=== PATIENT | male | born 1960 | race Caucasian/White ===

== ENCOUNTER 2023-04-29 09:50 | Outpatient (AMB) | payer MEDICARE, SELFPAY ==
--- NOTE | 2023-04-29 10:56 | A.OFFVIS_ITS ---
Intake Intake Visit Reasons: Low back pain Assessment & Plan Assessment & Plan (1) Cervical myelopathy: Code(s): G95.9 - Disease of spinal cord, unspecified (2) Cervical radiculopathy: Code(s): M54.12 - Radiculopathy, cervical region (3) Lumbar stenosis: Code(s): M48.061 - Spinal stenosis, lumbar region without neurogenic claudication Plan Dear Joselito, Thank you for referring Mr Benjamin to our office today. He is a very nice 63-year-old diabetic gentleman who underwent C3-C6 anterior cervical fusion with Dr. Rodriguez in 2011 for cervical myelopathy. He did very well after that procedure and recovered for the most part without any significant deficits. He noticed about a month or so ago acute onset of pain in his left arm that started without any provocative event. It starts at the top of his neck will radiate down into the front of his chest, across the shoulder down into his arm, forearm into his hands. He has tingling and numbness along the medial aspect of his left arm into his 4th and 5th digits. He is having a lot of difficulty with strength in his left arm. Specifically, he can not hold things, he can not open his fingers and extend them or grasp anything without dropping it. He underwent a cervical MRI showing adjacent segment disc disease with central canal stenosis and foraminal stenosis, and was referred for an evaluation. The weakness has been progressive and is getting worse over time. The pain is also quite severe and very bad at nighttime. He smokes marijuana and takes oxycodone help with the pain. He has also been taking Flexeril, Tylenol and ibuprofen. PMH: He has an extensive medical history including coronary disease with a cardiac arrest in 2019, he underwent what sounds like bypass surgery and possibly surgery to repair valves. He tells me that he is been in good shape since then without any further issues. Is a history of diabetes, his A1c is around 7. The [facility] record, state that he has diabetic retinopathy and ophthalmic manifestations as well. He has a history of high cholesterol, hypertension, erectile dysfunction. He denies any issues with his kidneys, bleeding disorders, lung disorders or abdominal problems. Social hx: He smokes marijuana daily but does not smoke cigarettes or use alcohol Medications: Lisinopril, atorvastatin, metoprolol, baby aspirin, metformin, Flexeril, oxycodone, gabapentin, Tylenol, ibuprofen Allergies: Denies any drug allergies Physical exam: He is awake alert oriented no acute distress, he has diffuse weakness of his left arm which I would rate as 4- out of 5 proximally and the deltoid and biceps, with the triceps, hand grasp, lumbricals and finger extensors all being about 2/5.. The patient has a mild left anterior tibialis weakness as well rated at 4-5. I do not see any atrophy of the arm at this point. There is sensory loss in the C8 distribution. He has an absent reflex at the left triceps, but the rest of his body is hyperreflexic. Valles's sign on the right, no Valles's on the left, positive pectoralis reflex on the left, lower extremity reflexes are hyperreflexic bilaterally. Imaging review: Cervical MRI done at [facility] shows evidence of fusion from C3- C6. There is residual right-sided myelomalacia at C4-5 with a small osteophyte still projecting posteriorly at this level. I was able to compare to the imaging done at [facility] in 2012 and there has been a significant reduction in the stenosis at this level. At C6-7 he has moderate to severe central canal stenosis with what appears to be a faint cord signal change at this level. There is neuroforaminal stenosis bilaterally. He also has foraminal stenosis at C7-T1 which I would rate as moderate. Incidentally he also has a lumbar MRI done at [facility] showing severe central canal stenosis at L4-5 with a slight spondylolisthesis and a synovial cyst. Impression: 63-year-old male history of previous C3-C6 anterior cervical [place] [address] Rodriguez for cervical myelopathy presents for evaluation of an acute onset of left arm pain which travels from his neck to his chest down across his arm into his forearm and hand with tingling and numbness in the 4th and 5th digits with significant diffuse loss of strength in the whole arm, worse distally. He certainly has stenosis at C6-7 below the fusion and I think there is some subtle cord signal change although it is not mentioned on the report. There is foraminal stenosis at this level as well which is severe. In addition, there is moderate foraminal stenosis at C7-T1 as well. Not nearly as bad as what is seen at C6-7. Typically this would be something Dr. Pardo would treat with anterior cervical fusion. Because of the mixing of dermatomes across C7 and C8 and the weakness of the finger intrinsics and the triceps, I suspect he would choose to do both of these levels that are affected below the fusion. I am a little perplexed why he has weakness proximally. We should keep in the back of our mind that a diabetic polyneuropathy can present like this as well and that would explain proximal weakness. In the end, I think Dr. Pardo is going to elect for the two-level anterior cervical fusion. The patient will obviously need cardiac clearance before surgery and he is going to work on calling his doctor's offices to see if we can expedite this. I will call the patient and update him with a plan once I have a chance to sit down with Dr. Pardo. We did briefly discuss the fact that he has lumbar stenosis but we can deal with this once his cervical spine issues are addressed. Thank you for allowing us to care for your patient. The total time spent with this visit with this patient was 65 minutes reviewing history, physical exam, cervical and lumbar imaging review, and implementation of treatment plan or further diagnostic testing Antonio Pardo MD,PhD [facility] [place] [facility] Coding Level of Care Code New Pt Level 5 (08309) Diagnoses Cervical myelopathy G95.9 Cervical radiculopathy M54.12 Lumbar stenosis M48.061
== END 2023-04-29 13:12 | disposition home or self-care (01) ==
PROVIDERS: PCP Internal Medicine; Referring Provider Physician Assistant; Visit Provider Physician Assistant
DX: G95.9 Disease of spinal cord, unspecified (principal); M54.12 Radiculopathy, cervical region; M48.061 Spinal stenosis, lumbar region without neurogenic claudication
CPT/HCPCS: 99205

== ENCOUNTER → 2023-04-29 09:50 | Outpatient (BNVA) | payer MEDICARE, SELFPAY | PROVIDERS: PCP Internal Medicine; Visit Provider Physician Assistant | DX: G95.9 Disease of spinal cord, unspecified (principal); M54.12 Radiculopathy, cervical region; M48.061 Spinal stenosis, lumbar region without neurogenic claudication | CPT/HCPCS: 99202 ==

== ENCOUNTER 2023-05-12 08:36 | Outpatient (REF) | payer MEDICARE, SELFPAY ==
--- NOTE | 2023-05-12 08:40 | EMG_ITS ---
Left median and ulnar motor and sensory studies were performed. Left radial sensory study was performed. Left median and lateral antecubital brachial sensory studies were performed and paraspinal muscles were tested with a needle. IMPRESSION: 1. [id number] left median neuropathy across carpal tunnel. 2. Mild left ulnar neuropathy across cubital tunnel. MD ANDREA Walter/ISABEL / [id number]
== END 2023-05-12 08:37 | disposition home or self-care (01) ==
LOC: HO.NEURO 08:36
PROVIDERS: PCP Physician Assistant Medical; Visit Provider Physician Assistant
DX: M54.12 Radiculopathy, cervical region (principal); G95.9 Disease of spinal cord, unspecified
CPT/HCPCS: 95886; 95910

== ENCOUNTER 2023-05-17 14:10 | Outpatient (AMB) | payer MEDICARE, SELFPAY ==
--- NOTE | 2023-05-17 14:14 | HO.SPINEOV ---
Intake Intake Visit Reasons: EMG results Intake Note: is here today to f/u EMG results. Beam Builder Required: No Assessment & Plan Assessment & Plan (1) Lumbar stenosis: Code(s): M48.061 - Spinal stenosis, lumbar region without neurogenic claudication Plan Mr Benjamin is back in the office today to review his EMG. The EMG was inconclusive. In the interim since I saw him a few weeks ago he tells me that the pain that he was having in his chest that was going down his arm is gone. He also feels a significant improvement in the numbness in his left hand. He does have some baseline weakness still with finger extension on his 4th and 5th digits but it is not getting worse. He feels more less that he is back almost to the level he was after his 1st neck surgery. I am going to review the situation with Dr. Pardo but I believe he is going to say we can cancel the anterior cervical fusion in light of his resolution of symptoms with the suspicion that this may have been a diabetic polyneuropathy as opposed to his spinal cord compression at C6-7. A 2nd issue he wanted to address was his lumbar spine. He has been having issues with back pain and bilateral leg pain for years. It was the original reason he wanted to come see us but obviously his cervical spine over road that at the time. Now that that is resolved he wanted me to look at his lumbar MRI and see if there was anything we can address with surgery. His symptoms as mentioned are back pain as well as bilateral leg pain with standing and walking. He has fatigue in his legs as well. The situation improves when he sits down but does not completely go away. If he coughs or sneezes he will get a jarring sensation in his back which will go down into his legs. He has been through cortisone injections through the years. No physical therapy. He will take [id number] medicine if needed if the symptoms are bad but in general it does not help any way. His MRI of the lumbar spine done at [facility] in December of 2022 shows what looks like a slight spondylolisthesis at L4-5 with hyperintensity of the right L4-5 facet joint with severe central canal stenosis. I am going to send him for flexion-extension x-rays and a vertical position to rule out instability. Based on the results of that we can consider either decompression alone versus fusion surgery if there is any signs of mobility. Once I have a chance to review everything with Dr. Pardo I will get back to the patient with a final plan. Total amount of time spent in this visit was 20 minutes in discussion of symptoms, lumbar, and EMG imaging results and subsequent plan of care Antonio Pardo MD,PhD [facility] Orders: Orders XR lumbar spine 4V min Today M48.061 - Spinal stenosis, lumbar region without neurogenic claudication Coding Level of Care Code Est Pt Level 3 (23791) Diagnoses Lumbar stenosis M48.061
== END 2023-05-17 15:18 | disposition home or self-care (01) ==
PROVIDERS: PCP Physician Assistant Medical; Visit Provider Physician Assistant
DX: M48.061 Spinal stenosis, lumbar region without neurogenic claudication (principal)
CPT/HCPCS: 99213

== ENCOUNTER 2023-05-17 14:10 | Outpatient (REF) | payer MEDICARE, SELFPAY ==
--- NOTE | ~2023-05-17 | XR_ITS ---
EXAMINATION: XR LUMBOSACRAL SPINE WITH OBLIQUES CLINICAL INFORMATION: Lumbar spinal stenosis, without neurogenic claudication. COMPARISON: None available. TECHNIQUE: AP and lateral (neutral, flexion and extension) views are submitted.. FINDINGS: There is mild bony demineralization. Vertebral body heights are normal. At L4-L5, there is a 5 mm anterolisthesis and mild disc space narrowing. The remaining disc spaces are well-maintained. No acute fracture or spondylolisthesis is seen. There is no instability with flexion or extension. There is moderately severe endplate arthropathy at T11-T12 and T12-L1, and very mild multi-level lumbar endplate arthropathy is seen. The posterior elements are intact. There is facet arthropathy, most pronounced at L4-L5 and L5-S1. The paravertebral soft tissues are unremarkable. There are aortoiliac atherosclerotic calcifications. XR/XR lumbar spine 4V min IMPRESSION: 1. There is moderate degenerative disc disease at L4-L5. 2. There is no instability with flexion or extension. 3. There is multi-level thoracolumbar spondylosis. 4. There is facet arthropathy, most pronounced at L4-L5 and L5-S1.
== END 2023-05-17 14:11 | disposition home or self-care (01) ==
LOC: HO.HOSX 14:10
PROVIDERS: PCP Physician Assistant Medical; Visit Provider Physician Assistant
DX: M48.061 Spinal stenosis, lumbar region without neurogenic claudication (principal)
CPT/HCPCS: 72110; 99212

== ENCOUNTER → 2023-07-07 13:20 | Outpatient (BNV) | payer MEDICARE, SELFPAY | PROVIDERS: PCP Physician Assistant Medical; Visit Provider Internal Medicine Cardiovascular Disease | DX: Z01.810 Encounter for preprocedural cardiovascular examination (principal); M48.061 Spinal stenosis, lumbar region without neurogenic claudication | CPT/HCPCS: 93010 ==

== ENCOUNTER → 2023-07-20 12:24 | Outpatient (REF) | payer MEDICARE, SELFPAY ==
--- NOTE | 2023-07-20 12:27 | CA_ITS ---
Transthoracic Echocardiogram Patient (Last, First, Middle): Antonio Benjamin J Gender: Male Date of : 1960 Age: 63 Procedure Date: 07/20/2023 Procedure Type: Transthoracic Echocardiogram Location: OP Height: 180.34 cm Weight: 120.2 kg BSA: 2.38 m2 Heart Rate: bpm BP: 114 / 77 mmHg Tube Test Technician: JIMBO Referring MD: Olu PATINO Motorized Squad Commanding Officer: Mohan Isaacs MD Symptoms: I25.10 - Atherosclerotic heart disease of [place] coronary artery without... Study Quality: Adequate with contrast ECG Rhythm: Sinus Conclusions: - 1. Normal LV ejection fraction of 65-70% with mild LVH with pseudonormal filling pattern 2. Cardiac valvular Doppler is within normal limits 3. No gross pericardial effusion Findings Procedure Information Contrast agent, definity, is being given per protocol without apparent complications. Left Ventricle Normal left ventricular size and systolic function. There is mildly increased left ventricular wall thickness. The visually estimated ejection fraction is between 65-70%. There is evidence of regional wall motion abnormalities. Spectral Doppler is indicative of a pseudonormal filling pattern. E/E prime ratio is between 8 and 15 consistent with indeterminate filling pressures. Wall Motion Rest Echo Findings The basal inferolateral segment is hypokinetic. The basal inferior and basal inferoseptal segments are akinetic. All other scored wall segments showed normal motion. Atria The left atrium is likely dilated. The right atrium is normal in size. Aortic Valve There is no aortic valve stenosis. There is no aortic valve regurgitation. Mitral Valve There is mild anterior and posterior mitral leaflet thickening. The posterior mitral leaflet has restricted mobility. There is trace mitral valve regurgitation. There is no mitral valve stenosis. Pulmonic Valve The pulmonic valve was not well visualized. Tricuspid Valve The tricuspid valve was not well visualized. Tricuspid regurgitation envelope is inadequate for calculation of right ventricular systolic pressure. Normal right atrial pressure. Great Vessels The aorta was not well visualized. The pulmonary artery was not well visualized. Venous The inferior vena cava is normal in size and collapses greater than 50% with inspiration. Pericardium/Pleural There is no evidence of pericardial effusion. Prior Study Comparison No prior study available for comparison. Measurements 2D Linear Measurements IVSd: 1.25 0.6-0.9/0.6-1.0 cm LVIDd: 4.12 3.9-5.3/4.2-5.9 cm LVIDd Index: 1.73 2.4-3.2/2.2-3.1 cm/m2 LVIDs: 2.59 2.0-3.6 cm LVPWd: 1.06 0.7-1.1 cm LA Diam: 4.10 2.7-3.8/3.0-4.0 cm LAIDs Index: 1.72 1.5-2.3 cm/m2 LV Mass: 203.75 67-162/88-224 g LV Mass Index: 85.61 43-95/49-115 g/m2 LVOT Diam: 2.10 3.0+(-)1.3 cm 2D Systolic Function EF 4C: 69.50 >55% EF 2C: 66.30 >55% EF BiP: 68.20 >55% Mitral Valve MV Pk E: 1.09 MV PK A: 0.80 MV Decel Time: 235.00 E/A: 1.40 E'Lateral: 11.30 E'Medial: 8.38 E/E' Med: 13.00 E/E' Lat: 9.60 PHT: 69.00 MVA PHT: 3.19 Decel [place]: 4.63 Aortic Valve AoV Pk Den: 1.36 AoV Mn Den: 0.98 AoV VTI: 0.29 AoV Pk Grad: 7.00 Aov Mn Grad: 4.00 MOSES Cont.VTI: 2.31 LVOT LVOT Pk Den: 0.95 LVOT Mn Den: 0.65 LVOT VTI: 0.19 LVOT Pk Grad: 4.00 LVOT Mn Grad: 2.00 LVOT Diam: 2.10 LVOT Area: 3.46 Diastolic Function MV Pk E: 1.09 MV Pk A: 0.80 E/A: 1.40 E'Medial: 8.38 E/E' Med: 13.00 E' Laterial: 11.30 E/E' Lat: 9.60 Right Ventricle TAPSE (mm): 17.00 TVS' Den: 11.20 Tricuspid Valve RA Press: 3.00 Great Vessels Aorta Sinus of Valsalva: 3.45 2.0-3.[address] [place]: 2.76 1.7-3.4 cm Ao Asc: 3.30 2.1-3.4 cm Updated in Other Vendor System with Status of Final Mohan Isaacs MD electronically signed on 07/20/2023 2:35:12 PM with status of Final
== END ==
LOC: HO.CARD 12:24
PROVIDERS: PCP Physician Assistant Medical; Visit Provider Physician Assistant
DX: I25.10 Atherosclerotic heart disease of native coronary artery without angina pectoris (principal)
CPT/HCPCS: 93306; 99212; J2250; J3010; Q9957

== ENCOUNTER 2023-07-20 13:56 | Outpatient (AMB) | payer MEDICARE, SELFPAY ==
[2023-07-20 14:46] VITALS: BP 122/74; PULSE 78; BMI 36.6
--- NOTE | 2023-07-20 14:46 | MHC.OFFVIS ---
Vital Signs 07/20/23 14:46 Height 5 ft 11 in Weight 262 lb 5.601 oz BMI 36.6 BP 122/74 Blood Pressure Location Lt brachial Position Sitting Pulse 78 Intake Visit Reasons: Preop/ [place]/ CAD, htn, echo at 1 today Intake Note: Pre-op clearance dx CAD feeling good Tissue Technologist Required: No Materials Manager: Materials Manager Present Accompanied by: Spouse Allergies No Known Allergies Allergy (Verified 07/06/23 10:11) Medication List - Last Reconciled 07/20/23 by Mohan Isaacs MD aspirin 81 mg PO DAILY atorvastatin 80 mg PO BEDTIME cyclobenzaprine 10 mg PO TID PRN dulaglutide (Trulicity) 3 mg subcut QWEEK gabapentin 600 mg PO TID insulin NPH and regular human 100 unit/mL (70-30) (Humulin 70/30 U-100 KwikPen) per patient lisinopril 2.5 mg PO DAILY metformin 850 mg PO BID metoprolol tartrate 25 mg PO BID multivitamin 1 tab PO DAILY oxycodone 15 mg PO Q4H PRN sildenafil 100 mg PO DAILY PRN HPI Comments Details: Thank you for referring Antonio in cardiology consultation today for an urgent preoperative cardiovascular risk stratification referred by anesthesia team. Patient is 63-year-old male with premature atherosclerosis with 1st manifestation of coronary artery disease for symptoms of unstable angina in 1997 leading to LAD stent. Subsequently in 2019 while he was in [place] he had a cardiac arrest witnessed and he subsequently underwent 6 vessel coronary artery bypass grafting. At that time he did not recall having any anginal symptoms. Over the last few years he has been having significant issues with lumbar pain. He had cervical spine issues which has not resolved but he is planned to undergo lumbar spine surgery, decompression under general anesthesia. This is considered intermediate risk surgery. Patient however says that he has excellent functional capacity. He goes to the gym every day. He can walk 3.5-4 miles an hours speed in an hour with an incline. He said he also carries 40 lb of wood pellets up and downstairs without any restriction from cardiac perspective. Denies any exertional chest pain or shortness of breath. He said he does other exercise in the gym without any issues. He takes all his medications. He is scheduled to undergo surgery tomorrow. He underwent an echocardiogram today which showed normal LV ejection fraction with mild LVH with regional wall motion abnormality consistent with underlying coronary artery disease pseudonormal filling pattern. He has no heart failure symptoms. Denies any worsening shortness of breath, orthopnea, PND. He is taking all his medications. EKG done recently showed normal sinus rhythm with normal EKG. [facility] Medical History Back pain Numbness Obesity Mixed hyperlipidemia Medical marijuana use Former cigarette smoker Diabetic retinopathy of both eyes DKA (diabetic ketoacidosis) Cyst of joint of right hand Erectile dysfunction HTN (hypertension) HLD (hyperlipidemia) CAD (coronary artery disease) Myocardial infarction Diabetes Surgical History Hx of heart artery stent H/O colonoscopy Hx of cardiac cath Hx of CABG Hx of neck surgery Hx of carpal tunnel repair Social History Are you a primary managed care director to a significant other at home: No Do you presently have visiting nurse or other home services: No Patient Tobacco Use Status: Former Tobacco user Review of Systems Const Denies chills, Denies daytime sleepiness, Denies fatigue, Denies fever(s), Denies frequent falls, Denies poor appetite, Denies snoring, Denies stops breathing during sleep, Denies weakness, Denies weight gain and Denies weight loss Eyes Denies loss of vision ENT Denies dizziness and Denies hearing loss Card Denies chest pain, Denies claudication, Denies leg edema, Denies lightheadedness, Denies palpitations, Denies dyspnea, Denies dyspnea on exertion and Denies orthopnea Resp Denies cough, Denies excessive phlegm production, Denies dyspnea, Denies dyspnea on exertion, Denies snoring and Denies wheezing GI Denies abdominal pain, Denies hematochezia, Denies change in bowel habits, Denies nausea and Denies vomiting Denies dysuria and Denies urinary frequency Musc Denies arthralgias, Denies muscle weakness, Denies numbness and Denies other (frequent falls) Skin/Breast Denies nail changes and Denies rash Neuro Denies Abnormal speech present, Denies dizziness, Denies frequent falls, Denies loss of vision, Denies memory loss, Denies numbness and Denies weakness Psych Denies depression and Denies memory loss Endo Denies fatigue and Denies palpitations Santo/Lymph Reports easy bruising and Reports other (anemia) Aller/Immun Denies wheezing Physical Exam Vital Signs: Last Vital Signs Pulse 78 07/20/23 14:46 BP 122/74 07/20/23 14:46 BMI result Body Mass Index 36.6 Const General: cooperative, comfortable, no acute distress, alert, awake and Physically active Nutritional Appearance: obese and overweight Limitations: no limitations HEENT Head: Yes normocephalic and Yes atraumatic Neck Neck: Yes trachea midline, Yes supple and Yes no JVD Chest Chest palpation & inspection: normal inspection of the chest and other (Well-healed sternotomy scar) Resp Effort & Inspection: normal respiratory effort Auscultation: clear to auscultation bilaterally Cardio Jugular venous distension: no JVD Palpation: normal PMI Rate: regular rate Rhythm: regular rhythm Heart sounds: S1 normal heart sound present, S2 normal heart sound present, no click, no gallops, no murmurs and no rubs GI Auscultation: normal bowel sounds Skin General skin exam: no rashes or lesions noted Neuro General: no focal motor deficits Speech: No Abnormal speech present Extrem General: Yes no clubbing, cyanosis or edema Psych Appearance: grossly normal Assessment & Plan Assessment & Plan (1) Pre-operative cardiovascular examination: Code(s): Z01.810 - Encounter for preprocedural cardiovascular examination Category: Medical Plan: Preoperative cardiovascular risk stratification this middle-aged man to undergo intermediate risk surgery spine surgery under general anesthesia with excellent functional capacity of more than 4 Mets with no symptoms of angina with no signs or symptoms of heart failure with normal LV ejection fraction by echocardiogram today and normal baseline EKG. He has no signs or symptoms of heart failure. At this point time appears to be optimized to undergo surgery with low to intermediate risk for perioperative cardiovascular morbidity mortality. His aspirin has been continued by the surgical team. Continue all other medications in the perioperative. Except for insulin and metformin as guided by anesthesia team. Please consult us in the perioperative time if need be. (2) Coronary artery disease: Code(s): I25.10 - Atherosclerotic heart disease of [place] coronary artery without angina pectoris Category: Medical Plan: CAD with premature atherosclerosis with successful coronary artery bypass grafting 5 years ago. I would suggest him to undergo surveillance myocardial perfusion imaging post spine surgery. This is to evaluate for graft patency. This is not urgent. Continue aggressive medical therapy. Currently on low-dose aspirin therapy and should be continue for life for vascular protection. Currently on high-intensity statin therapy with target goal LDL less than 70 mg/dL. Blood pressure is currently well optimized on current therapy. Continue the same. Continue aggressive management diabetes goal hemoglobin A1c less than 7% being pursue through office. Will follow up in the clinic in 3 months time after stress testing. Thank you for allowing me to partake in his care Orders: Orders CA stress test 3 Months I25.10 - Atherosclerotic heart disease of [place] coronary artery without angina pectoris NM cardiolite stress test 2 Weeks I25.10 - Atherosclerotic heart disease of [place] coronary artery without angina pectoris Coding Level of Care Code New Pt Level 4 (89467) Diagnoses Pre-operative cardiovascular examination Z01.810 Coronary artery disease I25.10
== END 2023-07-20 15:23 | disposition home or self-care (01) ==
PROVIDERS: PCP Physician Assistant Medical; Visit Provider Internal Medicine Cardiovascular Disease
DX: I25.709 Atherosclerosis of coronary artery bypass graft(s), unspecified, with unspecified angina pectoris (principal); Z01.810 Encounter for preprocedural cardiovascular examination
CPT/HCPCS: 93306; 99214

== ENCOUNTER 2023-07-21 10:13 | Day surgery (SDC) | payer MEDICARE, SELFPAY ==
--- NOTE | 2023-07-07 | ECG_ITS ---
Test Reason : PREOP Blood Pressure : / mmHG Vent. Rate : 073 BPM Atrial Rate : 073 BPM P-R Int : 152 ms QRS Dur : 074 ms QT Int : 370 ms P-R-T Axes : 000 061 077 degrees QTc Int : 407 ms Normal sinus rhythm Normal ECG No previous ECGs available Referred By: Amie Dunn Electronically Signed By:RAMANDEEP DRAPER MD
[2023-07-07 12:42] VITALS: BP 158/86; PULSE 73; RESP 16; O2SAT 96; BMI 37.9
[2023-07-07 14:17] LABS: Hematocrit 45.6 % (42.0-52.0); Hemoglobin 14.6 g/dl (14.0-18.0); Mean Corpuscular Hemoglobin 28.4 pg (27.0-33.0); Mean Corpuscular Volume 88.7 fL (80.0-98.0); Mean Platelet Volume 9.7 fL (9.4-12.4); Platelet Count 225 X10*3/uL (160-400); Red Blood Count 5.14 X10*6/uL (4.60-5.80); Red Cell Distribution Width 13.4 % (11.0-16.0)
--- NOTE | ~2023-07-21 | FL_ITS ---
EXAMINATION: XR FLUOROSCOPY WITH IMAGES CLINICAL INFORMATION: L4-L5 hemilaminectomy bilateral. COMPARISON: None available. TECHNIQUE: Fluoroscopy Supervised By: Dr. Pardo. Fluoroscopy Time: 5.1 sec. Cumulative Dose: 4.8704 mGy. DAP: 1.5739 Gycm2. Images: 1. FINDINGS: Intraoperative fluoroscopy and spot films were performed during a procedure in the OR. A probe is present at the inferior endplate of the L4 vertebral body. Please see Dr. Pardo' report for complete details. FL/FL guidance in OR IMPRESSION: Intraoperative fluoroscopy and spot films were obtained. Please see Dr. Pardo' report for complete details.
--- NOTE | 2023-07-21 07:06 | P.HPSUR_ITS ---
Pre-Procedural Eval Section A - 24 Hr Update-Section A only Date of Service: 07/21/23 The patient is an INPATIENT: No Changes since office visit: No Cold of Flu in the past 2 weeks, No New Medical Problems, No Changes in Medication and No Patient answered all questions The patient has been examined within 24 hours of the surgical procedure. The History & Physical has been completed within 30 days and I have reviewed it.: No Section B - Complete if H&P > 30 days Chief Complaint: Spinal stenosis, lumbar region without neurogenic Allergies: Allergies Allergy/AdvReac Type Severity Reaction Status Date / Time No Known Allergies Allergy Verified 07/06/23 10:11 Review of Systems Sugical H&P ROS: Negative: Constitution, Cardiovascular, Respiratory, Neurological, Psychiatric, Hem-Onc, Allergic/Immunologic, Gastrointestinal, Genitourinary, Musculoskeletal, Integumentary, Endocrine and Eyes/Ears/Nose/Thro at Exam Surgical H&P Exam: Not Evaluated: HEENT, Not Evaluated: Heart, Not Evaluated: Lungs, Not Evaluated: Extremities, Not Evaluated: Abdomen, Not Evaluated: Skin and Not Evaluated: Neurological Plan Diagnosis/Plan: Unchanged bilateral L4-5 midline sparing hemilaminotomy Time Spent With Patient Time: Total time managing care of this patient today _6___ minutes.
[2023-07-21] MEDS: methocarbamoL 750 MG TABLET PO (10:20)
[2023-07-21] MEDS: Gabapentin 300 MG CAPSULE PO (10:20)
[2023-07-21] MEDS: Lactated Ringers 1,000 ML 100 ML IVCONT (10:34)
[2023-07-21 10:39] LABS: Glucose, Whole Blood 143 mg/dL (60-115)
--- NOTE | 2023-07-21 12:40 | P.CONAN_ITS ---
Documented by User: Amie Dunn NP 07/20/23 11:48 HPI - Anesthesia Eval Consult details Narrative: Needs cardiac eval preop - app[place] [facility] Merchant aware 63yo M for L4-5 Hemilaminotomy (Midline Sparing) No recent illness No CP/SOB with yard work CAD, CA/cardiac arrest 2019 with CABG x 6. Stent 1997. No issues since. Has not followed with cardiology since 2019, he thought his PCP was activities officer. DM. FBS 90-150's. A1C 6.4 05/2023 Chronic opiates Anesthesia Pre-Procedure Meds Is the patient on any of the following meds?: Dulaglutide (Trulicity) PMFSH Active Problems Active Problems: All Active Problems Lumbar stenosis (Acute) Cervical radiculopathy (Acute) Cervical myelopathy (Acute) Past Medical History Medical History Back pain Numbness Obesity Mixed hyperlipidemia Medical marijuana use Former cigarette smoker Diabetic retinopathy of both eyes DKA (diabetic ketoacidosis) Cyst of joint of right hand Erectile dysfunction HTN (hypertension) HLD (hyperlipidemia) CAD (coronary artery disease) Myocardial infarction Diabetes Family History Family history of problems with anesthesia: No Surgical History Surgical History Hx of heart artery stent H/O colonoscopy Hx of cardiac cath Hx of CABG Hx of neck surgery Hx of carpal tunnel repair History of Problems with Anesthesia: No Social History Social History Are you a primary rental boats caretaker to a significant other at home: No Do you presently have visiting nurse or other home services: No Patient Tobacco Use Status: Former Tobacco user Substance Use Frequency: Daily Have you been hit, kicked, punched, or otherwise hurt by someone within the past year? If so, by whom?: No Are you DNR?: No Advance Directives: No Advance Directives Information Provided: Yes Advance Directives on File: No Recently lost weight without trying: No Eating poorly because of decreased appetite: No Nutrition Risks: No Nutritional Risk Poor oral hygiene: Yes (full upper partial no bottom teeth) Meds Allergies Allergy/AdvReac Type Severity Reaction Status Date / Time No Known Allergies Allergy Verified 07/06/23 10:11 Home Medications ?Medication ?Instructions ?Recorded ?Confirmed ?Last Taken ?Type aspirin 81 mg tablet,delayed 81 mg PO DAILY 07/06/23 07/20/23 07/20/23 History release atorvastatin 80 mg tablet 80 mg PO BEDTIME 07/06/23 07/20/23 07/20/23 History cyclobenzaprine 10 mg tablet 10 mg PO TID PRN Muscle Spasm 07/06/23 07/20/23 07/18/23 History lisinopril 2.5 mg tablet 2.5 mg PO DAILY 07/06/23 07/20/23 07/20/23 History metformin 850 mg tablet 850 mg PO BID 07/06/23 07/20/23 07/20/23 History metoprolol tartrate 25 mg tablet 25 mg PO BID 07/06/23 07/20/23 07/20/23 History multivitamin 1 tab PO DAILY 07/06/23 07/20/23 07/20/23 History oxycodone 15 mg tablet 15 mg PO Q4H PRN pain 07/06/23 07/20/23 07/20/23 History dulaglutide 3 mg/0.5 mL 3 mg subcut QWEEK 07/07/23 07/20/23 07/12/23 History subcutaneous pen injector (Trulicity) gabapentin 600 mg tablet 600 mg PO TID 07/07/23 07/20/23 07/20/23 History insulin NPH-regular 70-30 U-100 See Rx Instructions .Route .COMPLEX 07/07/23 07/20/23 07/20/23 History insulin 100 unit/mL subcutaneous pen (Humulin 70/30 U-100 KwikPen) sildenafil 100 mg tablet 100 mg PO DAILY PRN Sexual Activity 07/07/23 07/20/23 10/20/22 History Exam Height,Weight and Vital Signs: Height 5 ft 11 in Weight 123.377 kg Last Vital Signs Pulse 73 07/07/23 12:42 Resp 16 07/07/23 12:42 BP 158/86 H 07/07/23 12:42 Pulse Ox 96 07/07/23 12:42 O2 Del Method Room Air 07/07/23 12:42 Pertinent Lab Results Pertinent Lab Results: Lab Results 07/07/23 Range/Units 13:32 WBC 9.0 (4.8-10.8) X10*3/uL RBC 5.14 (4.60-5.80) X10*6/uL Hgb 14.6 (14.0-18.0) g/dl Hct 45.6 (42.0-52.0) % MCV 88.7 (80.0-98.0) fL MCH 28.4 (27.0-33.0) pg MCHC 32.0 (31.0-36.0) g/dl RDW 13.4 (11.0-16.0) % Plt Count 225 (160-400) X10*3/uL MPV 9.7 (9.4-12.4) fL Absolute Nucleated RBC 0.000 (0.0-0.012) X10*3/uL Nucleated RBC % (auto) 0.0 (0.0-0.2) /100WBC CMP 05/2023 from outside facility WNL Narrative Narrative: EKG 06/2023 Vent. Rate : 073 BPM Atrial Rate : 073 BPM P-R Int : 152 ms QRS Dur : 074 ms QT Int : 370 ms P-R-T Axes : 000 061 077 degrees QTc Int : 407 ms Normal sinus rhythm Normal ECG No previous ECGs available Airway TM Dist: >3cm Neck ROM: Limited (multiple level cspine disease. 2012 surgical repair) Denture: Upper and Lower Heart: RRR Lungs: CTAB Assessment and Plan Assessment Anesthesia Assessment: Anesthesia Plan Discussed and PAT Visit Final Anesthetic Review Family History of Problems with Anesthesia: No History of Problems with Anesthesia: No Documented by User: Ysabel Carrasco DO 07/21/23 12:46 HPI - Anesthesia Eval Anesthesia Pre-Procedure Meds Is the patient on any of the following meds?: Dulaglutide (Trulicity) (last dose 1 week ago) If Yes to any meds - educate patient: Pt education - increased risk of aspiration PMFSH Past Medical History Medical History Back pain Numbness Obesity Mixed hyperlipidemia Medical marijuana use Former cigarette smoker Diabetic retinopathy of both eyes DKA (diabetic ketoacidosis) Cyst of joint of right hand Erectile dysfunction HTN (hypertension) HLD (hyperlipidemia) CAD (coronary artery disease) Myocardial infarction Diabetes Family History Family history of problems with anesthesia: No Surgical History Surgical History Hx of heart artery stent H/O colonoscopy Hx of cardiac cath Hx of CABG Hx of neck surgery Hx of carpal tunnel repair History of Problems with Anesthesia: No Social History Social History Are you a primary rental boats caretaker to a significant other at home: No Do you presently have visiting nurse or other home services: No Patient Tobacco Use Status: Former Tobacco user Substance Use Frequency: Daily Have you been hit, kicked, punched, or otherwise hurt by someone within the past year? If so, by whom?: No Are you DNR?: No Advance Directives: No Advance Directives Information Provided: Yes Advance Directives on File: No Recently lost weight without trying: No Eating poorly because of decreased appetite: No Nutrition Risks: No Nutritional Risk Poor oral hygiene: Yes (full upper partial no bottom teeth) Meds Allergies Allergy/AdvReac Type Severity Reaction Status Date / Time No Known Allergies Allergy Verified 07/06/23 10:11 Home Medications ?Medication ?Instructions ?Recorded ?Confirmed ?Last Taken ?Type aspirin 81 mg tablet,delayed 81 mg PO DAILY 07/06/23 07/20/23 07/20/23 History release atorvastatin 80 mg tablet 80 mg PO BEDTIME 07/06/23 07/20/23 07/20/23 History cyclobenzaprine 10 mg tablet 10 mg PO TID PRN Muscle Spasm 07/06/23 07/20/23 07/18/23 History lisinopril 2.5 mg tablet 2.5 mg PO DAILY 07/06/23 07/20/23 07/20/23 History metformin 850 mg tablet 850 mg PO BID 07/06/23 07/20/23 07/20/23 History metoprolol tartrate 25 mg tablet 25 mg PO BID 07/06/23 07/20/23 07/20/23 History multivitamin 1 tab PO DAILY 07/06/23 07/20/23 07/20/23 History oxycodone 15 mg tablet 15 mg PO Q4H PRN pain 07/06/23 07/20/23 07/20/23 History dulaglutide 3 mg/0.5 mL 3 mg subcut QWEEK 07/07/23 07/20/23 07/12/23 History subcutaneous pen injector (Trulicity) gabapentin 600 mg tablet 600 mg PO TID 07/07/23 07/20/23 07/20/23 History insulin NPH-regular 70-30 U-100 See Rx Instructions .Route .COMPLEX 07/07/23 07/20/23 07/20/23 History insulin 100 unit/mL subcutaneous pen (Humulin 70/30 U-100 MaevePen) sildenafil 100 mg tablet 100 mg PO DAILY PRN Sexual Activity 07/07/23 07/20/23 10/20/22 History Exam Exam Date and Time: July 21, 2023 1240 Height,Weight and Vital Signs: Height 5 ft 11 in Weight 123.377 kg Last Vital Signs Pulse 73 07/07/23 12:42 Resp 16 07/07/23 12:42 BP 158/86 H 07/07/23 12:42 Pulse Ox 96 07/07/23 12:42 O2 Del Method Room Air 07/07/23 12:42 Vital Signs Pulse Rate 73 07/07/23 12:42 Respiratory Rate 16 07/07/23 12:42 Blood Pressure 158/86 H 07/07/23 12:42 Pulse Oximetry 96 07/07/23 12:42 Oxygen Delivery Method Room Air 07/07/23 12:42 Pulse Rate 73 07/07/23 12:42 Respiratory Rate 16 07/07/23 12:42 Blood Pressure 158/86 H 07/07/23 12:42 Pulse Oximetry 96 07/07/23 12:42 Oxygen Delivery Method Room Air 07/07/23 12:42 Airway Mallampati Class: II TM Dist: >3cm Neck ROM: Limited (multiple level cspine disease. 2012 surgical repair) Denture: Upper and Lower Heart: S1S2 Assessment and Plan Assessment Anesthesia Assessment: Anesthesia Plan Discussed and Chart Reviewed Final Anesthetic Review Family History of Problems with Anesthesia: No History of Problems with Anesthesia: No NPO: Yes ASA Class: III Final Preanesthetic Review: No Changes in Pt Med Stat, Meds/Allgs Chart Reviewed, Consent Obtained/Reviewed and Anes Risks/Benef Reviewed Patient Risk: Intermediate Procedure Risk: Intermediate Anesthetic Plan Anesthetic Plan: GA and Agree w/ Assess. and Plan Disposition: Standard PACU
--- NOTE | 2023-07-21 15:47 | W.PM.OPN ---
Operative Note Operative Note Date of Service: 07/21/23 Narrative: Preoperative Diagnosis: L4-5 spinal stenosis/lateral recess stenosis/neural foraminal stenosis Operation: L4-5 Laminotomy, Partial facetectomy and foraminotomy with use of microscope Consent Informed Consent was obtained for this operation. I have explained the nature, purpose and benefits of the operation. I have discussed the risks and benefit of the operation including possible complications or adverse events with patient/family. Alternative(s) were discussed with the patient with their relative benefits and risks as well as the consequences of not accepting the operation were included in obtaining consent. Surgeon: SUMAYA MCDERMOTT MD, PHD Procedure Assisted By: CAREY Tapia Description of Procedure This 63-year-old male suffering from predominantly right sided neurogenic claudication. MRI shows L4-5 spinal stenosis, right more than left The patient was offered a decompression. The procedure complications were explained. The patient was consented. The patient was brought to the operating room and endotracheally intubated. The patient was turned in prone position on the David frame. Prep and drape was done followed by timeout. The Physician administrative assistant coordinator provided access. A mid lumbar incision was made followed by release of the paravertebral muscle on the right side to expose the L4-5 lamina and facet joints. The approach took much longer than anticipated due to the patient's morbid obesity. An intraoperative x-ray was obtained to confirm the correct level. The microscope was brought in. I took over the procedure. The high-speed drill was used to do a right L4-5 laminotomy until flavum ligament was reached. A #2 Kerrison was used to expand the laminotomy near flush to the pedicles and to include a partial facetectomy. The flavum ligament was opened and resected with a #3 Kerrison to decompress the underlying thecal sac. The flavum ligament was removed to decompress the lateral recess and the exiting L5 nerve root. A long nerve hook could be easily passed along the medial side of the pedicles as a sign of adequate decompression. I turned the patient to the contralateral side. I undercut the spinous process and performed a contralateral decompression as much as possible. Again patient's habitus prevented me from perform a thorough contralateral decompression. Extensive hemostasis was done as the patient was oozing during the procedure. The microscope was removed. Hemostasis was done again. The physician administrative assistant coordinator close the Incision in 2 layers. Steri-Strips were used to approximate incision. An OpSite with Tegaderm was used to cover the incision. All sponge needle counts were correct. Patient was extubated and transported in stable is to recovery room. Anesthesia: General Estimated Blood Loss (ml): 35 mL Complications: None Duration of Surgery: 90 minutes Postoperative Plan: Discharge to home
--- NOTE | 2023-07-21 15:49 | P.DS_ITS ---
DS: Providers Provider Date of Service: 07/21/23 Primary care physician: CAREY Eisenberg DS: Summary Time Attestation Discharge Coordination Time (in mins): 15 Quality: Safe Use of Opioids Does Pt have an Active Cancer Diagnosis on the Problem List?: No Quality: Stroke Does the patient have a stroke diagnosis?: No Physical Exam Vital Signs: Vital Signs: Last Vital Signs Pulse 73 07/07/23 12:42 Resp 16 07/07/23 12:42 BP 158/86 H 07/07/23 12:42 Pulse Ox 96 07/07/23 12:42 O2 Del Method Room Air 07/07/23 12:42 BMI result Body Mass Index 37.9 DS: Data Data Completed and Pending Labs on day of discharge: Laboratory Results - last 24 hr 07/21/23 10:35 POC Glucose 143 H Discharge Plan Discharge Patient Disposition: Home, Self-Care Referrals: Antonio Tejada PA [Primary Care Provider] - 1 Week Discharge Medications: Continued multivitamin Tablet 1 tab PO DAILY cyclobenzaprine 10 mg tablet 10 mg PO TID PRN (Reason: Muscle Spasm) atorvastatin 80 mg tablet 80 mg PO BEDTIME metformin 850 mg tablet 850 mg PO BID oxycodone 15 mg tablet 15 mg PO Q4H PRN (Reason: pain) lisinopril 2.5 mg tablet 2.5 mg PO DAILY metoprolol tartrate 25 mg tablet 25 mg PO BID gabapentin 600 mg tablet 600 mg PO TID Trulicity 3 mg/0.5 mL Pen Injector 3 mg SUBCUT QWEEK Patient Comments: patient takes every Tuesday sildenafil 100 mg Tablet 100 mg PO DAILY PRN (Reason: Sexual Activity) Rx Instructions: administer 30 minutes to 4 hours before activity Humulin 70/30 U-100 KwikPen 100 unit/mL (70-30) Insulin Pen See Rx Instructions .ROUTE .COMPLEX Rx Instructions: per patient Held aspirin 81 mg Tablet,Delayed Release (Dr/Ec) 81 mg PO DAILY Hold Instructions: Resume on 07/28/23. Hold for 1 week Discharge Orders: Discharge Order (Routine); Ordered 07/21/23 Ordered By: Olu Sage Diet: Advance to usual diet Activity on Discharge: As tolerated Activity Restrictions/Additional Instructions: After your spinal surgery we ask you to observe the following restrictions/guidelines: Activity: It is normal to feel some discomfort as you increase your activity, but that will improve with time. We ask you avoid heavy lifting or acitivities that cause pain. As a general rule, 8lbs is a safe limit for lifting right after surgery. Walk as much as you feel comfortable but not to exhaustion. You will feel extra tired the first few days after surgery. Stay well hydrated. It is OK to walk up and down stairs You may return to driving when you are off narcotics (such as vicodin, oxycodone, dilaudid, etc), and you are back to normal functional capacity. If you have any concerns please check with office before driving. Return to work is specific to each patient and each surgery, so please speak with your doctor/PA at first follow up. Please bring paperwork such as FMLA at that time if you need it filled out. Medications: We recommend taking 1,000mg Tylenol 3 times daily for the next few weeks. You filled 28 days worth (140 total) Oxycodone on 07/05/23. Please continue to use this for the time being, alongside your muscle relaxer medication and Gabapentin. We cannot prescribe additional dosages of pain medications on top of these prescriptions. If you are on a narcotic, it is a good idea to take a stool softener such as colace or senna to avoid constipation If you take blood thinner such as aspirin, Plavix, Coumadin, Effient, Eliquis etc for conditions such as Afib, DVT, Pulmonary embolus, coronary disease, stents etc please speak with your surgeon about specific details as to when you can resume these medications. You can resume NSAIDs on post op day 1 (eg: Motrin, Naproxen, etc). Follow up: Please call the office, , after surgery to arrange a 3 week follow up for wound check. Wound Care: You may remove your dressing on the first day after surgery. ?You may ?leave open to air. Please do not remove the steri strips underneath. they will fall off on their own in one week. IT IS NORMAL FOR THE WOUND TO OOZE OR BE BLOODY FOR A FEW DAYS AFTER SURGERY. ?IF THIS HAPPENS JUST PLACE NEW DRESSING OVER IT TO AVOID STAINING CLOTHES. You may shower on post op day # 1 We ask that you do not let the water soak the wound. If it does get wet, just towel dry lightly. Please do not scrub your incision or place any type of chemical/ointment on the wound. No tub baths, pools or jacuzzis for one month. If you have any leaking or redness from your wound, or fevers, please call the office. Print Language: Martiniquais
[2023-07-21 16:12] VITALS: BP 177/83; PULSE 82; RESP 20; TEMP 36.1; O2SAT 95
[2023-07-21 16:15] VITALS: BP 177/83; PULSE 85; RESP 16; O2SAT 96
[2023-07-21 16:20] VITALS: BP 172/93; PULSE 85; RESP 16; O2SAT 96
[2023-07-21 16:25] VITALS: BP 178/85; PULSE 82; RESP 16; O2SAT 96
[2023-07-21 16:40] VITALS: BP 153/78; PULSE 75; RESP 16; O2SAT 96
[2023-07-21 16:55] VITALS: BP 159/73; PULSE 76; RESP 16; TEMP 36.4; O2SAT 94
== END 2023-07-21 17:16 | disposition home or self-care (01) ==
PROVIDERS: Nurse Practitioner; PCP Physician Assistant Medical; Visit Provider Neurological Surgery
PROC: (CPT 63047; principal; 2023-07-21 13:00)
DX: M48.061 Spinal stenosis, lumbar region without neurogenic claudication (principal); I10 Essential (primary) hypertension; I25.10 Atherosclerotic heart disease of native coronary artery without angina pectoris; I25.2 Old myocardial infarction; Z95.1 Presence of aortocoronary bypass graft; Z95.5 Presence of coronary angioplasty implant and graft; E78.2 Mixed hyperlipidemia; E11.10 Type 2 diabetes mellitus with ketoacidosis without coma; E11.319 Type 2 diabetes mellitus with unspecified diabetic retinopathy without macular edema; Z79.82 Long term (current) use of aspirin; Z79.899 Other long term (current) drug therapy; Z79.4 Long term (current) use of insulin; Z79.84 Long term (current) use of oral hypoglycemic drugs; Z87.891 Personal history of nicotine dependence
CPT/HCPCS: 63047; 36415; 82947; 85027; 93005; J0131; J0360; J0690; J1100; J1885; J1920; J2405; J2704; J3010

== ENCOUNTER → 2023-07-21 10:13 | Outpatient (BNV) | payer MEDICARE, SELFPAY | PROVIDERS: PCP Physician Assistant Medical; Visit Provider Neurological Surgery | DX: M48.061 Spinal stenosis, lumbar region without neurogenic claudication (principal) | CPT/HCPCS: 63047; 99499 ==

== ENCOUNTER 2023-07-29 11:33 | Outpatient (AMB) | payer MEDICARE, SELFPAY ==
--- NOTE | 2023-07-29 12:11 | HO.SPINEOV ---
Intake Visit Reasons: Suture Removal Only Intake Note: Mr. Benjamin is here for a Suture Removal. Sales Executive Insurance Required: No Allergies No Known Allergies Allergy (Verified 07/29/23 12:12) Assessment & Plan Assessment & Plan (1) Lumbar stenosis: Code(s): M48.061 - Spinal stenosis, lumbar region without neurogenic claudication Category: Medical Plan Today remove sutures from the lumbar incision. Patient will be seen in 2 weeks for his facial postoperative visit. Brandon Pardo MD, PhD Spine Fellowship Trained Neurosurgeon Director, [facility] Coding Level of Care Code Global (50531) Diagnoses Lumbar stenosis M48.061
== END 2023-07-29 12:30 | disposition home or self-care (01) ==
PROVIDERS: PCP Physician Assistant Medical; Visit Provider Neurological Surgery
DX: M48.061 Spinal stenosis, lumbar region without neurogenic claudication (principal)
CPT/HCPCS: 99024

== ENCOUNTER → 2023-07-29 11:33 | Outpatient (BNVA) | payer MEDICARE, SELFPAY | PROVIDERS: PCP Physician Assistant Medical; Visit Provider Neurological Surgery | DX: M48.061 Spinal stenosis, lumbar region without neurogenic claudication (principal) | CPT/HCPCS: 99212 ==

== ENCOUNTER 2023-08-01 13:23 | Outpatient (AMB) | payer MEDICARE, SELFPAY ==
--- NOTE | 2023-08-01 13:26 | HO.SPINEOV ---
Intake Visit Reasons: incision check Intake Note: Mr. Benjamin is here today for an incision check. Pharmacy Picking Tech Required: No Allergies No Known Allergies Allergy (Verified 08/01/23 13:28) Assessment & Plan Assessment & Plan (1) Status post lumbar spine surgery for decompression of spinal cord: Code(s): Z98.890 - Other specified postprocedural states Category: Surgical Plan Antonio is a 63 y/o M who comes in today as a follow up post L4-5 Laminotomy on 07/21/23. He has sutures removed on Tuesday last week. Unfortunately his wound has begun to open up a little. He no longer has a layer of crust formed over the incision site, and the area has been slowly bleeding since yesterday per his report. He reports no significant pain at the area, but does state he has had to change his bandages several times over the course of the last couple of days. When evaluated today, he has no notable area of crust or eschar over the incision site. The subcutaneous layer is open and leaking a small amount of serosanguineous fluid thankfully most of the subcutaneous sutures are still visible there is no notable fascia / deep tissue visible. I called and spoke with Dr. Pardo regarding the patient's status. The decision was made to anesthetize the area, debride the avascular wound edges, and approximate the wound once again with simple interrupted sutures. I obtained verbal consent from the patient explained the procedure. I donned sterile gloves and did this in a sterile fashion. The wound area was cleansed with alcohol swabs. The area was anesthetized and 10 mL total of lidocaine was used. 4-0 prolene interrupted sutures were placed (total quantity of 4). The patient tolerated the procedure well. I would like Antonio to come back in 14 days for suture removal. He will adjust his next upcoming office appointment to reflect this. I will prescribe him a 7 day course of Bactrim to take prophylactically due to the procedure done in office today. Olu Pardo MD,PhD [facility] Medications: New lidocaine HCl 10 mL subcut .NOW 5 mL 0RF sulfamethoxazole-trimethoprim 800-160 mg (Bactrim DS) 1 tab PO BID 7 days 14 tabs 0RF surgical prophylaxis Coding Level of Care Code Global (09781) Diagnoses Status post lumbar spine surgery for decompression of spinal cord Z98.890
== END 2023-08-01 14:08 | disposition home or self-care (01) ==
PROVIDERS: PCP Physician Assistant Medical; Visit Provider Physician Assistant
DX: Z98.890 Other specified postprocedural states (principal)
CPT/HCPCS: 99024

== ENCOUNTER → 2023-08-01 13:23 | Outpatient (BNVA) | payer MEDICARE, SELFPAY | PROVIDERS: PCP Physician Assistant Medical; Visit Provider Physician Assistant | DX: M96.1 Postlaminectomy syndrome, not elsewhere classified (principal); Z98.890 Other specified postprocedural states | CPT/HCPCS: 99212 ==

== ENCOUNTER 2023-08-04 10:07 | Outpatient (AMB) | payer MEDICARE, SELFPAY ==
--- NOTE | 2023-08-04 10:04 | A.SPINEOV_ITS ---
Intake Visit Reasons: incision check Intake Note: Mr. Benjamin is here today to have his incision checked. Antenna Installer Required: No Allergies No Known Allergies Allergy (Verified 08/04/23 10:10) Assessment & Plan Assessment & Plan (1) Status post lumbar spine surgery for decompression of spinal cord: Code(s): Z98.890 - Other specified postprocedural states Category: Surgical Plan: Antonio comes in today for a subsequent follow-up visit after calling the office this morning stating that his incision continues to bleed. We were able to achieve good hemostasis with 4 interrupted sutures after his superficial wound closure during his office visit on Tuesday. Today, it appears as though he ripped through the middle two sutures. Likely secondary to trunchal obesity and bending. I removed the remaining interrupted sutures, donned sterile gloves, cleansed the area with isopropyl alcohol, anesthetized the area again with 10 ccs 1% lidocaine, and placed a single running suture as this was previously used after surgery to achieve good hemostasis. I was again able to achieve hemostasis, and placed a non-adherent gauze bandage over the incision for the time being. I instructed the patient to leave bandage on today, and remove tomorrow / leave open to air going forward. He will continue taking prescribed Bactrim. He will be following up with us again Tuesday for a wound check. This was discussed with the attending neurosurgeon Dr. Pardo. Olu Pardo MD,PhD [facility] Coding Level of Care Code Global (17632) Diagnoses Status post lumbar spine surgery for decompression of spinal cord Z98.890
== END 2023-08-04 10:38 | disposition home or self-care (01) ==
PROVIDERS: PCP Physician Assistant Medical; Visit Provider Physician Assistant
DX: Z98.890 Other specified postprocedural states (principal)
CPT/HCPCS: 99024

== ENCOUNTER → 2023-08-04 10:07 | Outpatient (BNVA) | payer MEDICARE, SELFPAY | PROVIDERS: PCP Physician Assistant Medical; Visit Provider Physician Assistant | DX: Z98.890 Other specified postprocedural states (principal) | CPT/HCPCS: 99212 ==

== ENCOUNTER 2023-08-09 12:44 | Outpatient (AMB) | payer MEDICARE, SELFPAY ==
--- NOTE | 2023-08-09 12:51 | HO.SPINEOV ---
Intake Visit Reasons: incision check Intake Note: Mr. Benjamin is here today to have his incision checked. Artist Color Separation Required: No Allergies No Known Allergies Allergy (Verified 08/09/23 12:55) Assessment & Plan Assessment & Plan (1) Status post lumbar spine surgery for decompression of spinal cord: Code(s): Z98.890 - Other specified postprocedural states Category: Surgical Plan Antonio is a 63 y/o male who comes in today for a subsequent follow-up/wound check due to a superficial wound opening after his running suture that was placed during surgery was removed. Unfortunately, Antonio has again ripped the skin straight through the running suture that was placed. Fortuantely the top half of th suture stayed in place and closed well. The bottom half was opened and had slight serosanguineous fluid drainage. I took a picture of the incision and brought it to the attending neurosurgeon to discuss a plan moving forward. The attending neurosurgeon would like the running sutures removed, the wound packed, and the patient to be continued on antibiotics prophylactically. I have a low suspicion for deep tissue wound infection at this time, as the patient reports his only symptom is the continued sanguineous drainage. He reports no pain, and the incision has minimal erythema / edema. No palpable fluctuance. I instructed antonio to keep the incision site covered with the wound packing material until . On would like to see him again and change his wound packing before the weekend. Olu Pardo MD,PhD [facility] Medications: New doxycycline hyclate 100 mg PO BID 7 days 14 caps 0RF Surgical prophylaxis Coding Level of Care Code Global (12621) Diagnoses Status post lumbar spine surgery for decompression of spinal cord Z98.890
== END 2023-08-09 13:44 | disposition home or self-care (01) ==
PROVIDERS: PCP Physician Assistant Medical; Visit Provider Physician Assistant
DX: Z98.890 Other specified postprocedural states (principal)
CPT/HCPCS: 99024

== ENCOUNTER → 2023-08-09 12:44 | Outpatient (BNVA) | payer MEDICARE, SELFPAY | PROVIDERS: PCP Physician Assistant Medical; Visit Provider Physician Assistant | DX: Z98.890 Other specified postprocedural states (principal) | CPT/HCPCS: 99212 ==

== ENCOUNTER 2023-08-11 10:27 | Outpatient (AMB) | payer MEDICARE, SELFPAY ==
--- NOTE | 2023-08-11 10:33 | HO.SPINEOV ---
Intake Visit Reasons: follow up Intake Note: Mr. 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 See previous office visit notes to recap current situation. I previously packed his superficial incision site with iodoform packing. I saw him back today to re-evaluate and repack the incision site. It appears as though it is healing very well, continues to show no signs of erythema edema or fluctuance patient continues to report no pain, no fever, night sweats etc. Again I prepared a sterile field, cleanse the area with povidone iodine swab sticks, donned sterile gloves, induced sterile instrumentation to remove previous packing. Again you sterile instrumentation to insert new iodoform packing. The incision site was then covered with nonadherent gauze and medical tape. The patient understands that this dressing should be changed every day or so. I provided dressing materials to his to assist with changing the dressing. I would like to follow up with him again on Tuesday to ensure that his wound continues to close, and once again changed his packing. Olu Pardo MD,PhD [facility] Coding Level of Care Code Global (18790) Diagnoses Status post lumbar spine surgery for decompression of spinal cord Z98.890
== END 2023-08-11 10:51 | disposition home or self-care (01) ==
PROVIDERS: PCP Physician Assistant Medical; Visit Provider Physician Assistant
DX: Z98.890 Other specified postprocedural states (principal)
CPT/HCPCS: 99024

== ENCOUNTER → 2023-08-11 10:27 | Outpatient (BNVA) | payer MEDICARE, SELFPAY | PROVIDERS: PCP Physician Assistant Medical; Visit Provider Physician Assistant | DX: Z98.890 Other specified postprocedural states (principal) | CPT/HCPCS: 99212 ==

== ENCOUNTER 2023-08-15 09:29 | Outpatient (AMB) | payer MEDICARE, SELFPAY ==
--- NOTE | 2023-08-15 09:34 | HO.SPINEOV ---
Intake Visit Reasons: Post-op visit Intake Note: Mr. Benjamin is here today for post-op visit. Applications Development Analyst Required: No Allergies No Known Allergies Allergy (Verified 08/11/23 10:38) Assessment & Plan Assessment & Plan (1) Status post lumbar spine surgery for decompression of spinal cord: Code(s): Z98.890 - Other specified postprocedural states Category: Surgical Plan Continuing to follow Mr. Benjamin regarding his wound closure. He has been doing daily dressing changes as instructed. The iodoform again has fallen out. He is overall doing well. Continues to report no pain. No significant drainage has been reported. He has been showering every other day. On inspection it appears the incision site continues to gradually closed. There is no erythema, edema or fluctuance noted. No active drainage. No pain to touch around the incision site. No reported hypoesthesia. The incision site was inspected alongside CAREY Haynes. We decided to have the patient transition from regular iodoform packing in office to wet/dry dressing daily. His was provided with normal saline, gauze, and bandage coverings. We will follow up with the patient next Tuesday. Olu Pardo MD,PhD [facility] Coding Level of Care Code Global (97016) Diagnoses Status post lumbar spine surgery for decompression of spinal cord Z98.890
== END 2023-08-15 10:09 | disposition home or self-care (01) ==
PROVIDERS: PCP Physician Assistant Medical; Visit Provider Physician Assistant
DX: Z98.890 Other specified postprocedural states (principal)
CPT/HCPCS: 99024

== ENCOUNTER → 2023-08-15 09:29 | Outpatient (BNVA) | payer MEDICARE, SELFPAY | PROVIDERS: PCP Physician Assistant Medical; Visit Provider Physician Assistant | DX: Z98.890 Other specified postprocedural states (principal) | CPT/HCPCS: 99212 ==

== ENCOUNTER 2023-08-22 08:51 | Outpatient (AMB) | payer MEDICARE, SELFPAY ==
--- NOTE | 2023-08-22 08:56 | A.SPINEOV_ITS ---
Intake Visit Reasons: post op Intake Note: Mr. 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 We are continuing to follow his wound healing. It appears to be closing consistently, yet slow. It is now closed more superficially, exposing only the subcutaneous fat / dermis. He reports no signficant pain to the area with direct palpation via a sterile non adherent gauze. The area was once again cleansed with iodine and packed with wet normal saline gauze. Dry non adherent gauze placed over the top and secure with medical tape. Overall Antonio continues to heal well. Recommend continued wet to dry packing and follow up again in 1 week for subsequent evaluation. He understands he can reach out to us PRN if any new issues with the incision site. Olu Pardo MD,PhD [facility] Coding Level of Care Code Global ([id number]) Diagnoses Status post lumbar spine surgery for decompression of spinal cord Z98.890
== END 2023-08-22 09:21 | disposition home or self-care (01) ==
PROVIDERS: PCP Physician Assistant Medical; Visit Provider Physician Assistant
DX: Z98.890 Other specified postprocedural states (principal)
CPT/HCPCS: 99024

== ENCOUNTER → 2023-08-22 08:51 | Outpatient (BNVA) | payer MEDICARE, SELFPAY | PROVIDERS: PCP Physician Assistant Medical; Visit Provider Physician Assistant | DX: Z48.89 Encounter for other specified surgical aftercare (principal); Z79.899 Other long term (current) drug therapy | CPT/HCPCS: 99212 ==

== ENCOUNTER 2023-08-29 09:03 | Outpatient (AMB) | payer MEDICARE, SELFPAY ==
--- NOTE | 2023-08-29 09:13 | HO.SPINEOV ---
Intake Visit Reasons: follow up Intake Note: Mr. Benjamin is here today for a F/u. 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 We are currently doing weekly wound checks to ensure adequate healing of his post-operative incision site. His significant other has been helping him to complete wet to dry dressing changes. His incision site continues to close, slowly. He has no incisional erythema, edema, or fluctuance. He has no significant pain to touch near incision site. I changed his wound packing, observed continued progressive closure of the incision when compared to last week, and provided his significant other with additional non-adherent gauze / packing needed to continue at home wet to dry dressing changes. We will follow up with Mr. Schmitt again in 1 week, and will continue to do so until the wound closes. Oul Pardo MD,PhD [facility] Coding Level of Care Code Global ([id number]) Diagnoses Status post lumbar spine surgery for decompression of spinal cord Z98.890
== END 2023-08-29 09:25 | disposition home or self-care (01) ==
PROVIDERS: PCP Physician Assistant Medical; Visit Provider Physician Assistant
DX: Z98.890 Other specified postprocedural states (principal)
CPT/HCPCS: 99024

== ENCOUNTER → 2023-08-29 09:03 | Outpatient (BNVA) | payer MEDICARE, SELFPAY | PROVIDERS: PCP Physician Assistant Medical; Visit Provider Physician Assistant | DX: Z98.890 Other specified postprocedural states (principal) | CPT/HCPCS: 99212 ==

== ENCOUNTER → 2023-09-05 08:59 | Outpatient (BNVA) | payer MEDICARE, SELFPAY | PROVIDERS: PCP Physician Assistant Medical; Visit Provider Physician Assistant ==

== ENCOUNTER 2023-09-12 09:58 | Outpatient (AMB) | payer MEDICARE, SELFPAY ==
--- NOTE | 2023-09-12 10:23 | A.SPINEOV_ITS ---
Intake Visit Reasons: follow up Intake Note: Mr. 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 He has made very good progress since we last saw him. He has been cleansing the area with hibiclens and changing the packing daily. His wound is nearly completed healed. It is closed 50% [address] the way on the skin, and up to the superior edge of the dermis. I encouraged him to continue changing the packing for another week, then leave the area open to air thereafter. We will follow up with him again in 4 weeks for s subsequent wound check. I am hopeful the incision site will be completed healed by then. Olu Pardo MD,PhD [facility] Coding Level of Care Code Global ([id number]) Diagnoses S/P spinal surgery Z98.890
== END 2023-09-12 10:32 | disposition home or self-care (01) ==
PROVIDERS: PCP Physician Assistant Medical; Visit Provider Physician Assistant
DX: Z98.890 Other specified postprocedural states (principal)
CPT/HCPCS: 99024

== ENCOUNTER → 2023-09-12 09:58 | Outpatient (BNVA) | payer MEDICARE, SELFPAY | PROVIDERS: PCP Physician Assistant Medical; Visit Provider Physician Assistant | DX: Z47.89 Encounter for other orthopedic aftercare (principal); Z98.890 Other specified postprocedural states | CPT/HCPCS: 99212 ==

== ENCOUNTER → 2023-10-10 08:14 | Outpatient (REF) | payer MEDICARE, SELFPAY ==
--- NOTE | ~2023-10-10 | NM_ITS ---
Myocardial perfusion study Indication: Atherosclerotic heart disease to evaluate for myocardial ischemia Technique: The patient was brought in for a Lexiscan perfusion study on 10/10/2023. Patient performed low-level exercise and was injected 0.4 mg of Lexiscan intravenously. Within a minute of injection, 40 mCi of sestamibi was given intravenously. Images were obtained using the SPECT gamma camera interlaced with the gating device. Images were obtained in supine position. Resting perfusion study was performed on 10/11/2023. Patient was administered 40 mCi of sestamibi intravenously at rest. Images were then obtained in supine position. Images obtained with and without CT attenuation. Total DLP 174 mGy-cm. Images were processed with the software and compared side to side in short axis, horizontal long axis and vertical long axis views. Findings: The stress perfusion study showed non attenuated images show some thinning of inferolateral wall and mildly to moderately reduced uptake in the basal inferior wall of the LV myocardium. Remainder of the LV myocardium is normally perfused. Attenuated corrected images show normal uptake of radiotracer in all segments of LV myocardium. The gated study shows normal LV systolic function with calculated LVEF of 74%. LV cavity is normal in size. The gated study shows normal systolic wall thickening and contraction of segments. Resting study shows no change in perfusion pattern compared to stress perfusion study. Gating at rest reveals normal systolic wall motion with ejection fraction at 63%. The findings are consistent with normal myocardial perfusion. NM/NM cardiolite stress test Impression: 1. Myocardial perfusion imaging study shows normal myocardial perfusion 2. Gated LVEF is 74% 3. Transient ischemic dilatation not present EKG is nondiagnostic for ischemia
--- NOTE | 2023-10-10 08:18 | CA_ITS ---
Acquisition Time: 2023-10-10 08:25:03 Total Exercise Time: 00:02:30 Test Indications: CAD, PREOP Medications: SEE H Protocol: MARC Max HR: 130 BPM 82% of Pred: 157 BPM Max BP: 226/066 mmHG Max Work Load: 4.6 METS Exercise stress test exercise 2 min 30 sec of Marc protocol 65% MPHR, without anginal symptoms, with HTN resposne to exercise, with nondiagnsoitiic EKGs. Test terminated due to HTN. Once blood pressure returned to baseline switched to pharmacological stress test with :Lexiscan injection Pharmacological stress test with Lexiscan injection while sitting and marching., without anginal symptoms, without arrhythmias, with normotensive response to injection, with nondiagnsoiitic EKGs.Aminophylline 75mg IVP given to reverse Lexiscan. Nuclear images pending. Test reviewed with Dr. Tse Patient did take his antihypertive medications this morning Referred By: Mohan Isaacs Overread By: Sandy Luna
== END ==
LOC: HO.CARD 08:14
PROVIDERS: PCP Physician Assistant Medical; Visit Provider Internal Medicine Cardiovascular Disease
DX: I25.10 Atherosclerotic heart disease of native coronary artery without angina pectoris (principal)
CPT/HCPCS: 78452; 93017; A9500; J0280; J2785

== ENCOUNTER → 2023-10-10 08:20 | Outpatient (BNV) | payer MEDICARE, SELFPAY | PROVIDERS: PCP Physician Assistant Medical; Visit Provider Internal Medicine Cardiovascular Disease | DX: I25.10 Atherosclerotic heart disease of native coronary artery without angina pectoris (principal); I10 Essential (primary) hypertension | CPT/HCPCS: 78452; 93016; 93018 ==

== ENCOUNTER 2023-10-13 09:25 | Outpatient (AMB) | payer MEDICARE, SELFPAY ==
[2023-10-13 09:30] VITALS: BP 134/82; PULSE 84; BMI 36.2
--- NOTE | 2023-10-13 09:30 | MHC.OFFVIS ---
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 Allergies No Known Allergies Allergy (Verified 10/13/23 09:32) Medication List - Last Reconciled 10/13/23 by Maira Gambino NP-C aspirin 81 mg PO DAILY atorvastatin 80 mg PO BEDTIME cyclobenzaprine 10 mg PO TID PRN dulaglutide (Trulicity) 3 mg subcut QWEEK insulin NPH and regular human 100 unit/mL (70-30) (Humulin 70/30 U-100 KwikPen) per patient lisinopril 2.5 mg PO DAILY metformin 850 mg PO BID metoprolol tartrate 25 mg PO BID multivitamin 1 tab PO DAILY oxycodone 15 mg PO Q4H PRN sildenafil 100 mg PO DAILY PRN HPI HPI 3m follow up/Cristina mibi: Details: Antonio is a 63-year-old male past medical history of hypertension, hyperlipidemia, lad stent 1997, cardiac arrest 2018 followed by 6 vessel coronary artery bypass grafting who recently underwent spinal surgery without any known cardiac complications. He did have a nuclear stress test and now presents for follow-up. Today he reports he has been doing well since his spine surgery. His primary issue had been dehiscence of the wound but he now states it is entirely healed. He has been back to the gym using the treadmill and machines without any concerning symptoms. He has no chest discomfort at rest or with activity. He denies shortness of breath, PND, orthopnea or edema. No lightheadedness, presyncope, syncope, falls. Takes his medications as directed. is present. [facility] Medical History (Updated 10/13/23 @ 10:20 by JORGE BrunnerC) Back pain Numbness Obesity Mixed hyperlipidemia Medical marijuana use Former cigarette smoker Diabetic retinopathy of both eyes DKA (diabetic ketoacidosis) Cyst of joint of right hand Erectile dysfunction HTN (hypertension) HLD (hyperlipidemia) CAD (coronary artery disease) Myocardial infarction Diabetes Surgical History Hx of heart artery stent H/O colonoscopy Hx of cardiac cath Hx of CABG Hx of neck surgery Hx of carpal tunnel repair Social History Are you a primary healthcare economics consultant to a significant other at home: No Do you presently have visiting nurse or other home services: No Patient Tobacco Use Status: Former Tobacco user Review of Systems Const All systems reviewed & are unremarkable except as noted in HPI and below ENT Denies dizziness Card Denies chest pain, Denies chest pain at rest, Denies chest pain with activity, Denies rapid heart rate, Denies pedal edema, Denies edema, Denies leg edema, Denies lightheadedness, Denies palpitations, Denies dyspnea, Denies dyspnea on exertion and Denies orthopnea Resp Denies cough, Denies dyspnea and Denies dyspnea on exertion GI Denies hematochezia and Denies change in stool character Musc Denies abnormal gait, Denies limited range of motion, Denies muscle cramps, Denies muscle weakness, Denies numbness, Denies radiating pain into limb, Denies stiffness and Denies tingling Neuro Denies abnormal gait, Denies dizziness, Denies numbness and Denies tingling Endo Denies palpitations Physical Exam Vital Signs: Last Vital Signs Pulse 84 10/13/23 09:30 BP 134/82 10/13/23 09:30 BMI result Body Mass Index 36.2 Const Other: obese General: cooperative, healthy appearing, comfortable and no acute distress Orientation/consciousness: patient oriented x3 Neck Neck: Yes normal visual inspection and Yes no JVD Resp Effort & Inspection: normal respiratory effort Auscultation: clear to auscultation bilaterally, no crackles, no rales, no rhonchi and no wheezes Cardio Jugular venous distension: no JVD Rate: regular rate Rhythm: regular rhythm Heart sounds: S1 normal heart sound present, S2 normal heart sound present, no murmurs and no rubs Neuro General: patient oriented x3 Extrem General: Yes normal to inspection, No no pedal edema and No calf tenderness Psych Appearance: grossly normal Mental Status: mental status grossly normal Speech and movement: Normal speech and movement present Assessment & Plan Assessment & Plan (1) CAD (coronary artery disease): Comment: 05/02/2018 cardiac arrest, s/p defibrillation by AED in the field. Critical 3 vessel CAD, s/p Cabg x 6. Lad stent 1997 Code(s): I25.10 - Atherosclerotic heart disease of [place] coronary artery without angina pectoris Category: Medical Plan: History of CAD with remote LAD stent. Cardiac arrest 2019 followed by 6 vessel coronary artery bypass grafting. He reports feeling well since that time. Echocardiogram done 07/20/2023 showed EF 65-70%, mild LVH, normal valves, basal inferolateral hypokinetic, basal inferior and basal inferior septal akinetic. In July he was seen by Dr. Isaacs and cleared for spinal surgery as intermediate cardiac risk. He underwent the surgery without any known cardiac complications. He did have a stress test on 10/11/2023 with exercise 2 minutes 30 seconds the need to stop due to hypertensive blood pressure response to exercise, blood pressure 226/66. He was rested and then a pharmacological stress test was performed. His myocardial perfusion imaging was normal. Today he reports feeling well with no anginal symptoms. He is now back to the gym and has been using the treadmill and machines which he says he tolerates well. Will have him continue aspirin indefinitely. Continue high-dose atorvastatin with ideal LDL goal less than 70. Continue lisinopril and metoprolol. Signs and symptoms of angina reviewed. Continue exercise as tolerated. Emergency care if ever needed for symptoms. Cardiology follow-up 6 months, sooner if needed. (2) Mixed hyperlipidemia: Code(s): E78.2 - Mixed hyperlipidemia Category: Medical Plan: [place] LDL goal less than 70. He tells me he has upcoming labs do for his PCP. He believes this to include cholesterol. The importance of good cholesterol control reviewed with him. (3) Myocardial infarction: Comment: age 36-- and on 05/02/2018 NSTEMI w/ questionable seizure activity post cardiac arrest collapse Code(s): I21.9 - Acute myocardial infarction, unspecified Category: Medical Plan: As above (4) HTN (hypertension): Code(s): I10 - Essential (primary) hypertension Category: Medical Plan: History of hypertension. He had documented hypertensive response to exercise during recent stress test. He tells me he had taken his medications just prior to the test. His blood pressure today is normal. Home blood pressures when checked at rest reported as being normal range. Instructed him to check blood pressure after using the treadmill and machines when at the gym. Instructed to call this office or notify PCP if systolic is running greater than 180. He says he had been on lisinopril 10 mg daily in the past and was having positional lightheadedness. He says his dose was reduced to 5 mg daily and he continued to have the symptom. He is now on 2.5 mg daily and does not have any issue with lightheadedness. He continues on metoprolol. If his blood pressure with activity continues to be elevated then will need better blood pressure control. Can consider the use of atenolol instead of lisinopril. Will forward this note to his PCP. Plan Time spent on chart review, documentation, interview and assessment Coding Level of Care Code Est Pt Level 4 (96239) Diagnoses CAD (coronary artery disease) I25.10 Mixed hyperlipidemia E78.2 Myocardial infarction I21.9 HTN (hypertension) I10 Time Spent (min) 30
== END 2023-10-13 09:59 | disposition home or self-care (01) ==
PROVIDERS: PCP Physician Assistant Medical; Visit Provider Nurse Practitioner Family
DX: I25.10 Atherosclerotic heart disease of native coronary artery without angina pectoris (principal); E78.2 Mixed hyperlipidemia; I21.9 Acute myocardial infarction, unspecified; I10 Essential (primary) hypertension
CPT/HCPCS: 99214

== ENCOUNTER → 2023-10-13 09:25 | Outpatient (BNVA) | payer MEDICARE, SELFPAY | PROVIDERS: PCP Physician Assistant Medical; Visit Provider Nurse Practitioner Family | DX: I25.10 Atherosclerotic heart disease of native coronary artery without angina pectoris (principal); I25.2 Old myocardial infarction; I10 Essential (primary) hypertension; E78.2 Mixed hyperlipidemia | CPT/HCPCS: 99212 ==

== ENCOUNTER 2023-10-17 08:51 | Outpatient (AMB) | payer MEDICARE, SELFPAY ==
--- NOTE | 2023-10-17 08:54 | A.SPINEOV_ITS ---
Intake Visit Reasons: 1 month f/u Intake Note: Mr. Benjamin is here today for a 1 month F/u. 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 Thankfully today, his wound is completely healed and shows no signs continued scabbing or opening. It was slow, but the wound is able to heal from the base up to the subcutaneous skin. Overall Antonio continues to heal very well since his surgery. He reports no pre-surgical symptoms. He may follow-up on as-needed basis, but regular routine follow-up is not required at this time. Olu Pardo MD,PhD [facility] Coding Level of Care Code Global (16688) Diagnoses S/P spinal surgery Z98.890
== END 2023-10-17 09:07 | disposition home or self-care (01) ==
PROVIDERS: PCP Physician Assistant Medical; Visit Provider Physician Assistant
DX: Z98.890 Other specified postprocedural states (principal)
CPT/HCPCS: 99024

== ENCOUNTER → 2023-10-17 08:51 | Outpatient (BNVA) | payer MEDICARE, SELFPAY | PROVIDERS: PCP Physician Assistant Medical; Visit Provider Physician Assistant | DX: Z09 Encounter for follow-up examination after completed treatment for conditions other than malignant neoplasm (principal); Z98.890 Other specified postprocedural states | CPT/HCPCS: 99212 ==